=== PATIENT | male | born 1995 | race Caucasian/White ===

== ENCOUNTER 2018-12-09 07:44 | Emergency (ER) | payer OTHER ==
[~2018-12-09] VITALS: Ht 175.3 cm; Wt 59.1 kg
[2018-12-09 08:04] VITALS: BP 117/73
[2018-12-09] MEDS ORDERED: MEBE100T11 PO (08:36)
== END 2018-12-09 08:58 | disposition home or self-care (01) ==
LOC: ER 07:45
DX: B80 Enterobiasis (principal); Z79.899 Other long term (current) drug therapy
CPT/HCPCS: 99283